=== PATIENT | female | born 1950 | race Caucasian/White ===

== ENCOUNTER 2019-11-07 07:00 | Day surgery (SDC) | payer MEDICARE, BC ==
[2019-11-07] VITALS (13 sets, daily range): BP systolic 102–165; BP diastolic 56–116
[~2019-11-07] VITALS: Ht 162.6 cm; Wt 80.1 kg
[2019-11-07] MEDS ORDERED: normal saline 1,000 ML IV SCH (07:20)
[2019-11-07] MEDS ORDERED: LORazepam 0.5 MG tablet PO PRN (07:20)
[2019-11-07] MEDS ORDERED: diphenhydrAMINE 25mg capsule PO PRN (07:20)
[2019-11-07] MEDS ORDERED: APIX5TAB3 PO (07:36)
[2019-11-07] MEDS ORDERED: DET2T PO (07:36)
[2019-11-07] MEDS ORDERED: METO50TA7 PO (07:36)
[2019-11-07] MEDS ORDERED: FENO145T38 PO (07:36)
[2019-11-07] MEDS ORDERED: FLEC50TA26 PO (07:36)
[2019-11-07] MEDS ORDERED: LIDOcaine/PRILOcaine 5gm cream TP ONE (07:40)
[2019-11-07 08:21] LABS: BASOPHILS % (AUTO) 0.8 % (0-1); EOSINOPHILS # (AUTO) 0.1 X10'3 (0-0.9); EOSINOPHILS % (AUTO) 1.8 % (0-6); HEMATOCRIT 44.1 % (35.0-45.0); HEMOGLOBIN 15.1 g/dl (12.0-16.0); LYMPHOCYTES # (AUTO) 1.8 X10'3 (1.1-4.8); LYMPHOCYTES % (AUTO) 39.6 % (21-51); MEAN CORPUSCULAR HEMOGLOBIN 33.7 PG (27.0-31.0); MEAN CORPUSCULAR HGB CONC 34.3 g/dL (33.0-36.5); MEAN PLATELET VOLUME 7.7 FL (7.4-10.4); MONOCYTES # (AUTO) 0.5 X10'3 (0-0.9); MONOCYTES % (AUTO) 10.4 % (2-12); NEUTROPHILS # (AUTO) 2.1 X10'3 (1.8-7.7); NEUTROPHILS % (AUTO) 47.4 % (42-75); PLATELET COUNT 256 X10'3 (140-440); WHITE BLOOD COUNT 4.5 X10'3 (4.5-11.0)
[2019-11-07] MEDS ORDERED: nitroGLYCERIN-Tridil 50MG/D5W 250 ML IV ONE (08:25)
[2019-11-07] MEDS ORDERED: fentaNYL/PF 50MCG/1 ML 2ML syringe ONE (08:25)
[2019-11-07] MEDS ORDERED: midazolam 2 mg/2 ml injection ONE ×2 (08:25→10:05)
[2019-11-07] MEDS ORDERED: LIDOcaine 1% (10mg/ml)w/preservative injection 20ml MDV ONE (08:25)
[2019-11-07] MEDS ORDERED: verapamil 2.5 mg/ml inj IV ONE (08:25)
[2019-11-07] MEDS ORDERED: heparin 1,000unit/ml 10ml vial 10 ML ONE ×2 (08:26→10:34)
[2019-11-07] MEDS ORDERED: iohexol 350MG/ML 100ml bottle IV ONE ×2 (08:26→09:26)
[2019-11-07] MEDS ORDERED: iohexol 350 MG/ML 50ML vial IV ONE (08:26)
[2019-11-07] MEDS ORDERED: pneumococcal 23-VAL P-sac vacc 25 mcg/0.5ml vial IMVAC ONE (08:30)
[2019-11-07 08:35] LABS: ALBUMIN 4.3 G/DL (3.4-5.0); ANION GAP 10 (8-16); BLOOD UREA NITROGEN 19 MG/DL (7-18); BUN/CREATININE RATIO 27.1 (6.6-38.0); CALCIUM 9.2 MG/DL (8.5-10.1); CHLORIDE 107 MMOL/L (99-107); GLUCOSE 84 MG/DL (70-104); POTASSIUM 4.1 MMOL/L (3.5-5.1); SODIUM 141 MMOL/L (135-145); TOTAL CARBON DIOXIDE 24.2 MMOL/L (24-32); eGFR 83 ML/MIN
[2019-11-07 08:41] LABS: PARTIAL THROMBOPLASTIN TIME 23 SECONDS (22-32)
[2019-11-07] MEDS ORDERED: heparin 25,000 UNIT/250ml bag 250 ML IV ONE (09:27)
[2019-11-07 09:30] LABS: ISTAT HGB ART 13.3 g/dl (12.0-16.0); ISTAT Hct ART 39 %PCV (35-48); ISTAT Hct MIX 39 %PCV (35-48); ISTAT O2 SATURATION ARTERIAL 97 % (95-98); ISTAT O2 SATURATION MIX VENOUS 68 % (60-80); ISTAT SOURCE ART; ISTAT SOURCE MIX
[2019-11-07] MEDS ORDERED: clopidogrel 300mg tablet ONE (10:28)
--- NOTE | 2019-11-07 11:05 | NUR ---
Pt back in room. VS stable as charted. RT radial band in place. no s/s of bleeding. rt groin site drsg CD&I. no s/s of bleeding. pt asking for water, will bring to her and continuing to monitor.
--- NOTE | 2019-11-07 11:28 | NUR ---
EKG being done at bedside.
[2019-11-07] MEDS ORDERED: proCHLORperazine 10 MG/2 ml inj IV PRN (11:45)
[2019-11-07] MEDS ORDERED: cyclobenzaprine 10mg tablet PO PRN (11:45)
[2019-11-07] MEDS ORDERED: OXAZEpam 15mg capsule PO PRN (11:45)
[2019-11-07] MEDS ORDERED: heparin 25,000 UNIT/250ml bag 250 ML IV SCH (11:45)
[2019-11-07] MEDS ORDERED: magnesium hydroxide 30ml (MOM) UD suspension PO PRN (11:45)
[2019-11-07] MEDS ORDERED: HYDROcodone/acetaminophen 10/325mg tab PO PRN ×2 (11:45)
[2019-11-07] MEDS ORDERED: acetaminophen 325mg tablet PO PRN (11:45)
--- NOTE | 2019-11-07 12:30 | NUR ---
Heparin stopped as ordered.
--- NOTE | 2019-11-07 13:00 | NUR ---
correction vascular band was deflated 2ml air, not inflated.
--- NOTE | 2019-11-07 17:45 | NUR ---
pt ate 100% of sandwich tray, 250ml oral fluid intake. pt denies Nausea. Denies pain at this time. rt wrist site stable. rt groin stable. jamilg cd&I
--- NOTE | 2019-11-07 18:05 | NUR ---
Problems reprioritized. Patient report given, questions answered & plan of care reviewed with Nicole FLAHERTY.
[2019-11-07] MEDS ORDERED: docusate sod 100mg capsule PO SCH (20:00)
[2019-11-08] MEDS ORDERED: aspirin 81mg tab.chew PO SCH (08:00)
[2019-11-08] MEDS ORDERED: clopidogrel 75mg tablet PO SCH (08:00)
== END 2019-11-07 19:15 | disposition home or self-care (01) ==
LOC: SSTAY O 07:00
PROVIDERS: ATTEND Internal Medicine Cardiovascular Disease
DX: R94.39 Abnormal result of other cardiovascular function study (principal); I25.10 Atherosclerotic heart disease of native coronary artery without angina pectoris; I48.0 Paroxysmal atrial fibrillation; F32.9 Major depressive disorder, single episode, unspecified; I10 Essential (primary) hypertension; Z98.890 Other specified postprocedural states; Z79.899 Other long term (current) drug therapy
CPT/HCPCS: 36415; 80048; 82803; 85014; 85025; 85347; 85610; 85730; 93005; 93460; C1725; C1769; C1874; C1894; C9600; J1644; J2001; J2250; J3010; J7030; Q0163; Q9967; 93458; 99152; 99153; A4620; A5120; A6258; C9601; J3490

== ENCOUNTER 2021-02-06 08:41 | Emergency (ER) | payer MEDICARE, BC ==
[~2021-02-06] VITALS: Ht 162.6 cm; Wt 74.1 kg
[~2021-02-06 08:41] MED LIST: APIX5TAB3 PO; DET2T PO; FENO145T38 PO; FLEC50TA28 PO; METO50TA7 PO
[2021-02-06 08:52] VITALS: BP 157/68
[2021-02-06] MEDS ORDERED: acetaminophen 325mg tablet PO ONE (09:55)
[2021-02-06] MEDS ORDERED: bacitracin 15gm ointment TP ONE (09:55)
== END 2021-02-06 10:34 | disposition home or self-care (01) ==
LOC: ER 08:41
DX: S50.11XA Contusion of right forearm, initial encounter (principal); S40.021A Contusion of right upper arm, initial encounter; M25.531 Pain in right wrist; I25.10 Atherosclerotic heart disease of native coronary artery without angina pectoris; Z98.61 Coronary angioplasty status; Z98.890 Other specified postprocedural states; Z79.01 Long term (current) use of anticoagulants; Z79.899 Other long term (current) drug therapy; W18.39XA Other fall on same level, initial encounter; Y93.89 Activity, other specified; Y92.89 Other specified places as the place of occurrence of the external cause; Y99.8 Other external cause status
CPT/HCPCS: 29125; 73090; 96372; 99284

== ENCOUNTER 2024-11-26 12:41 | Emergency (ER) | payer MEDICARE, BC ==
[~2024-11-26] VITALS: Ht 160 cm; Wt 59.1 kg
[2024-11-26 12:46] VITALS: TEMP 98
[2024-11-26] MEDS: HYDROcodone/acetaminophen 10/325mg tab PO ONE (15:22)
[2024-11-26 15:45] VITALS: BP 131/44; PULSE 87; RESP 16; O2SAT 97
== END 2024-11-26 15:46 | disposition home or self-care (01) ==
LOC: ER 12:42
DX: S39.012A Strain of muscle, fascia and tendon of lower back, initial encounter (principal); I25.10 Atherosclerotic heart disease of native coronary artery without angina pectoris; Z79.899 Other long term (current) drug therapy; Z98.890 Other specified postprocedural states; X58.XXXA Exposure to other specified factors, initial encounter; Y93.89 Activity, other specified; Y92.89 Other specified places as the place of occurrence of the external cause; Y99.8 Other external cause status
CPT/HCPCS: 99283